=== PATIENT | female | born 1965 | race Two or more races ===

== ENCOUNTER 2018-07-17 22:08 | Emergency (ER) | payer SELFPAY ==
[~2018-07-17] VITALS: Ht 170.2 cm; Wt 79.5 kg
[2018-07-17 22:13] VITALS: BP 121/63
--- NOTE | 2018-07-17 22:29 | NUR ---
PT AMBULATED TO THE RESTROOM. U/A SPECIMEN GIVEN
--- NOTE | 2018-07-17 22:29 | NUR ---
PT AMBULATED BACK TO [facility]OB[facility]
--- NOTE | 2018-07-17 22:40 | NUR ---
Patient ambulated to bed 10. RN evaluating patient at bedside.
--- NOTE | 2018-07-17 22:41 | NUR ---
GAVE REPORT TO LUIS GARCIA, VSS
--- NOTE | 2018-07-17 22:57 | NUR ---
53/F PRESENTS TO ED, C/O DIZZINESS, WEAKNESS AND BODYACHES, X1 DAY. PT REPORTS HAVING SIMILAR SYMPTOMS BEFORE, 2X LAST YEAR, WAS TOLD SHE HAD LOW BLOOD GLUCOSE. POC BLOOD GLUCOSE 384 AT THIS TIME. REPORTS MILD DRY COUGH. PT DENIES FEVER, CP, SOB, N/V/D. PT AOX4, GCS 15, PERRLA, RR EVEN AND UNLABORED. LUNG SOUNDS CLEAR BL. BS ACTIVE X4, ABD SOFT ROUND NONTENDER. HX DM RX METFORMIN
[2018-07-18] MEDS ORDERED: KETOROLAC 60 MG/2 ML VIAL IM ONE ×2 (01:00→01:20)
[2018-07-18 01:27] VITALS: BP 127/64
--- NOTE | 2018-07-18 01:27 | NUR ---
Patient discharged with v/s stable. Written and verbal after care instructions given and explained. Patient alert, oriented and verbalized understanding of instructions. Ambulatory with steady gait. All questions addressed prior to discharge. ID band removed. Patient advised to follow up with PMD. Rx of TAMIFLU, MOTRIN, CIPROFLOXACIN given. Patient educated on indication of medication including possible reaction and side effects. Opportunity to ask questions provided and answered.
== END 2018-07-18 01:27 | disposition home or self-care (01) ==
LOC: MED 22:08
DX: N39.0 Urinary tract infection, site not specified (principal); R42 Dizziness and giddiness; E11.9 Type 2 diabetes mellitus without complications; F17.200 Nicotine dependence, unspecified, uncomplicated
CPT/HCPCS: 81002; 81025; 96372; 99283; J1885

== ENCOUNTER 2021-09-28 07:21 | Day surgery (SDC) | payer OTHER ==
[~2021-09-28] VITALS: Ht 167.6 cm; Wt 73.9 kg
[2021-09-28] MEDS ORDERED: LIDOCAINE 2% 100 MG/5 ML UJET TP ONE (10:40)
[2021-09-28] MEDS ORDERED: fentaNYL citrate 0.05 MG/ML VIAL ONE (10:40)
[2021-09-28] MEDS ORDERED: fentaNYL citrate 0.05 MG/ML VIAL IM ONE (14:30)
== END 2021-09-28 11:25 | disposition home or self-care (01) ==
LOC: MOR 07:21 → MMU 07:23 → MOR 11:25
PROVIDERS: ATTEND Internal Medicine Gastroenterology
DX: Z12.11 Encounter for screening for malignant neoplasm of colon (principal); I10 Essential (primary) hypertension; E11.9 Type 2 diabetes mellitus without complications; Z20.822 Contact with and (suspected) exposure to COVID-19; Z79.899 Other long term (current) drug therapy
CPT/HCPCS: 45378; 81025; 87426; J3010